=== PATIENT | male | born 1975 | race Caucasian/White ===

== ENCOUNTER 2017-12-17 15:19 | Emergency (ER) | payer OTHER ==
[~2017-12-17] VITALS: Ht 177.8 cm; Wt 74.4 kg
[2017-12-17 15:25] VITALS: BP 149/85
== END 2017-12-17 18:11 | disposition home or self-care (01) ==
LOC: ED 18:05
DX: K04.7 Periapical abscess without sinus (principal)
CPT/HCPCS: 99283

== ENCOUNTER 2018-03-22 09:48 | Emergency (ER) | payer BC, OTHER ==
[~2018-03-22] VITALS: Ht 177.8 cm; Wt 73.4 kg
[2018-03-22 09:50] VITALS: BP 133/95
== END 2018-03-22 10:55 | disposition home or self-care (01) ==
LOC: ED 10:49
DX: K08.89 Other specified disorders of teeth and supporting structures (principal); M75.92 Shoulder lesion, unspecified, left shoulder; J20.8 Acute bronchitis due to other specified organisms; B97.89 Other viral agents as the cause of diseases classified elsewhere; F17.200 Nicotine dependence, unspecified, uncomplicated
CPT/HCPCS: 99283